=== PATIENT | male | born 1985 | race Two or more races ===

== ENCOUNTER 2017-07-30 07:51 | Emergency (ER) | payer MEDICAID ==
[~2017-07-30] VITALS: Ht 170.2 cm; Wt 83.9 kg
[~2017-07-30 07:51] MED LIST: CEP500 PO; CIP500 PO; CYCL10TA29 PO; HYDR-4309 PO; LOR5 PO; LOR5/325 PO; NAPR500T75 PO; NO RTN MEDS; PENI-24 PO; PER PO; PRE10 PO; PRO25 PO; TAM4 PO; TRA50 PO
--- NOTE | 2017-07-30 07:55 | ER Report ---
History and Physical Time Seen By MD: 07:54 HPI/ROS CHIEF COMPLAINT: Diarrhea HISTORY OF PRESENT ILLNESS: A 32-year-old male was healthy presents with multiple episodes of watery diarrhea per day since Monday. Monday he ate and undercooked chicken wing that was quite pink on the inside. Progression over the week is been improving overall, he had more nausea and abdominal pain nausea and abdominal pain has mostly resolved the diarrhea remains. He is concerned about food poisoning. Or food borne infection. No fevers chills. No other concerns or complaints today. He feels dehydrated and is planning to get back to work tomorrow. Was hoping it would go away on its own. REVIEW OF SYSTEMS: Constitutional: No fever, no chills. Eyes: No discharge. ENT: No sore throat. Cardiovascular: No chest pain, no palpitations. Respiratory: No cough, no shortness of breath. Gastrointestinal: No bloody stools however stools were dark Genitourinary: No hematuria. Musculoskeletal: No back pain. Skin: No rashes. Neurological: No headache. Allergies: Coded Allergies: No Known Allergies (Verified Allergy, Mild, 07/30/17) Home Meds Discontinued Reported Medications [None] No Conflict Check, 0 Refills 11/09/10 Discontinued Scripts Cyclobenzaprine Hcl (CYCLOBENZAPRINE HCL) 10 Mg Tablet, 10 MG PO TID, #20 TAB TAKE 1 TABLET BY MOUTH THREE TIMES A DAY Prov:VALDEZ LEE MD 09/06/13 Hydrocodone Bit/Acetaminophen (NORCO 5-325 TABLET) 1 Each Tablet, 1 EACH PO Q6H , #15 TAB Prov:VALDEZ LEE MD 09/06/13 Naproxen (NAPROSYN) 500 Mg Tablet, 500 MG PO Q12H, #30 TAB TAKE 1 TABLET EVERY 12 HOURS. Prov:VALDEZ LEE MD 09/06/13 Hx Smoking: No Smoking Status: Former Smoker Hx Substance Use Disorder: No Hx Alcohol Use: Yes (OCCASIONALLY) Constitutional Vital Sign - Last 24 Hours 07/30/17 07/30/17 07/30/17 07/30/17 07:51 07:55 07:56 08:00 Temp 97.9 Pulse ??? 60 Resp 14 B/P (MAP) 139/79 139/79 (99) 131/93 (106) Pulse Ox 92 O2 Delivery Room Air 07/30/17 08:30 B/P (MAP) 131/80 (97) Physical Exam General Appearance: The patient is alert, has no immediate need for airway protection and no signs of toxicity. No acute distress Eyes: Pupils equal and round no pallor or injection. ENT, Mouth: Mucous membranes are moist. Respiratory: There are no retractions, lungs are clear to auscultation. Cardiovascular: Regular rate and rhythm. No murmurs gallops or rubs Gastrointestinal: Abdomen is soft and non tender, no masses, bowel sounds normal. Neurological: Normal Skin: Warm and dry, no rashes. Musculoskeletal: Neck is supple non tender. Extremities are nontender, nonswollen and have full range of motion. No edema DIFFERENTIAL DIAGNOSIS: After history and physical exam differential diagnosis was considered for salmonella, Shigella, Campylobacter, Escherichia coli, C. difficile community-acquired, viral GI syndrome; no signs of appendicitis diverticulitis or other surgical pathology. Medical Decision Making Data Points Result Diagram: 07/30/17 0821 07/30/17 0821 Laboratory Hematology Test 07/30/17 08:21 07/30/17 08:49 Red Blood Count 4.72 M/uL (4.00-5.60) Mean Corpuscular Volume 92.7 fL (80.0-96.0) Mean Corpuscular Hemoglobin 32.6 pg (26.0-33.0) Mean Corpuscular Hemoglobin Concent 35.2 g/dL (32.0-36.0) Red Cell Distribution Width 12.7 % (11.5-14.5) Mean Platelet Volume 7.1 fL (7.2-11.1) Neutrophils (%) (Auto) 58.0 % (39.4-72.5) Lymphocytes (%) (Auto) 33.1 % (17.6-49.6) Monocytes (%) (Auto) 6.6 % (4.1-12.4) Eosinophils (%) (Auto) 2.1 % (0.4-6.7) Basophils (%) (Auto) 0.2 % (0.3-1.4) Nucleated RBC Relative Count (auto) 0.1 /100WBC Neutrophils # (Auto) 5.5 K/uL (2.0-7.4) Lymphocytes # (Auto) 3.2 K/uL (1.3-3.6) Monocytes # (Auto) 0.6 K/uL (0.3-1.0) Eosinophils # (Auto) 0.2 K/uL (0.0-0.5) Basophils # (Auto) 0.0 K/uL (0.0-0.1) Nucleated RBC Absolute Count (auto) 0.01 K/uL Sodium Level 137 mmol/L (137-145) Potassium Level 4.1 mmol/L (3.5-5.0) Chloride Level 105 mmol/L (98-107) Carbon Dioxide Level 23 mmol/L (22-30) Blood Urea Nitrogen 6 mg/dl (9-21) Creatinine 0.60 mg/dl (0.66-1.25) Glomerular Filtration Rate Calc > 60.0 Random Glucose 88 mg/dl (75-110) Calcium Level 9.0 mg/dl (8.4-10.2) Total Bilirubin 0.3 mg/dl (0.2-1.3) Aspartate Amino Transf (AST/SGOT) 24 U/L (0-35) Alanine Aminotransferase (ALT/SGPT) 35 U/L (0-56) Alkaline Phosphatase 95 U/L (0-126) Total Protein 7.9 gm/dl (6.3-8.2) Albumin 4.0 g/dl (3.5-5.0) Stool Occult Blood (IFOB) Negative (NEGATIVE) Stool Leukocytes, Qualitative Negative Clostridium Difficile Toxin A & B Negative Clostridium difficile Antigen Negative Chemistry Test 07/30/17 08:21 07/30/17 08:49 White Blood Count 9.6 k/uL (4.5-11.0) Red Blood Count 4.72 M/uL (4.00-5.60) Hemoglobin 15.4 g/dL (14.0-18.0) Hematocrit 43.7 % (42.0-52.0) Mean Corpuscular Volume 92.7 fL (80.0-96.0) Mean Corpuscular Hemoglobin 32.6 pg (26.0-33.0) Mean Corpuscular Hemoglobin Concent 35.2 g/dL (32.0-36.0) Red Cell Distribution Width 12.7 % (11.5-14.5) Platelet Count 315 K/uL (150-450) Mean Platelet Volume 7.1 fL (7.2-11.1) Neutrophils (%) (Auto) 58.0 % (39.4-72.5) Lymphocytes (%) (Auto) 33.1 % (17.6-49.6) Monocytes (%) (Auto) 6.6 % (4.1-12.4) Eosinophils (%) (Auto) 2.1 % (0.4-6.7) Basophils (%) (Auto) 0.2 % (0.3-1.4) Nucleated RBC Relative Count (auto) 0.1 /100WBC Neutrophils # (Auto) 5.5 K/uL (2.0-7.4) Lymphocytes # (Auto) 3.2 K/uL (1.3-3.6) Monocytes # (Auto) 0.6 K/uL (0.3-1.0) Eosinophils # (Auto) 0.2 K/uL (0.0-0.5) Basophils # (Auto) 0.0 K/uL (0.0-0.1) Nucleated RBC Absolute Count (auto) 0.01 K/uL Glomerular Filtration Rate Calc > 60.0 Calcium Level 9.0 mg/dl (8.4-10.2) Total Bilirubin 0.3 mg/dl (0.2-1.3) Aspartate Amino Transf (AST/SGOT) 24 U/L (0-35) Alanine Aminotransferase (ALT/SGPT) 35 U/L (0-56) Alkaline Phosphatase 95 U/L (0-126) Total Protein 7.9 gm/dl (6.3-8.2) Albumin 4.0 g/dl (3.5-5.0) Stool Occult Blood (IFOB) Negative (NEGATIVE) Stool Leukocytes, Qualitative Negative Clostridium Difficile Toxin A & B Negative Clostridium difficile Antigen Negative Microbiology Microbiology Date/Time Source Procedure Growth Status 07/30/17 08:49 Stool Gram Stain - Final Resulted 07/30/17 08:49 Stool Stool Culture Pending Resulted ED Course/Re-evaluation ED Course Plan of care agreed-upon plan orders placed. Lab called to discuss Gram stain results normal for stool. Culture pending. All results were discussed with the patient at 07/30/2017 9:53:51 am Decision to Disposition Date: Jul 30, 2017 Decision to Disposition Time: 09:59 Depart Departure Latest Vital Signs Vital Signs Date Time Temp Pulse Resp B/P (MAP) Pulse Ox O2 Delivery O2 Flow Rate FiO2 07/30/17 08:30 131/80 (97) 07/30/17 07:55 97.9 60 14 92 Room Air Impression: Primary Impression: Diarrhea of presumed infectious origin Condition: Improved Disposition: HOME OR SELF-CARE New Scripts Ciprofloxacin Hcl (CIPROFLOXACIN HCL) 500 Mg Tablet 500 MG PO Q12H for 3 Days, #6 TAB Prov: SHEA MACEDO MD 07/30/17 Patient Instructions: Traveler's Diarrhea (ED) SHEA MACEDO MD Jul 30, 2017 07:55
[2017-07-30] MEDS ORDERED: NS(*) 0.9% 1000 ML BAG 1,000 ML IV ONE (08:15)
[2017-07-30 08:30] LABS: PLATELET COUNT, AUTOMATED 315 K/uL (150-450)
[2017-07-30] MEDS ORDERED: CIPR-214 PO (10:02)
[2017-07-30 10:09] VITALS: BP 129/80
== END 2017-07-30 10:10 | disposition home or self-care (01) ==
LOC: ER 07:51
DX: A09 Infectious gastroenteritis and colitis, unspecified (principal)
CPT/HCPCS: 82274; 83630; 85025; 87045; 87177; 87205; 87324; 87449; 96360; 99283; J7030; 82040; 82247; 82310; 82374; 82435; 82565; 82947; 84075; 84132; 84155; 84295; 84450; 84460; 84520